=== PATIENT | female | born 1960 | race African-American/Black ===

== ENCOUNTER 2016-05-31 00:38 | Observation (INO) | payer MEDICAID ==
[~2016-05-31] VITALS: Ht 162.6 cm; Wt 93.4 kg
[~2016-05-31 00:38] MED LIST: ASPIRIN325 MG PO; EFFIENT10 MG PO; GLIPIZIDE10 MG PO; GLUCOPHAGE850 MG PO; METOPROLOL TAR100 M1 PO; MOBIC7.5 MG PO; NORVASC5 MG PO; PRAVACHOL40 MG PO; ZESTORETIC 20/21 TAB PO
[2016-05-31 01:35] LABS: HEMATOCRIT 40.9 % (36.0-48.0); HEMOGLOBIN 13.3 g/dL (12-16); MCH 26.9 pg (26.0-34.0); MCHC 32.5 g/dL (31.0-37.0); MCV 82.6 fL (80.0-100.0); PLATELET COUNT 244 10x3/uL (130-400); RBC 4.95 10x6/uL (4.00-5.40); WBC 5.8 10x3/uL (4.8-10.8)
[2016-05-31 01:49] LABS: ALBUMIN 3.5 g/dL (3.4-5.0); ALKALINE PHOSPHATASE 64 U/L (46-116); ALT (SGPT) 34 U/L (10-68); CALC OSMOLALITY 281 mosm/kg (275-300); CALCIUM 9.5 mg/dL (8.5-10.1); CARBON DIOXIDE 27.9 mmol/L (21.0-32.0); CHLORIDE - SERUM 102 mmol/L (98-107); CREATININE - SERUM 0.9 mg/dL (0.6-1.3); PROTEIN - SERUM 7.1 g/dL (6.4-8.2); SODIUM 136 mmol/L (136-145); UREA NITROGEN 9 mg/dL (7-18); eGFR NON AFRICAN AMERICAN 69 mL/min (90-120)
[2016-05-31 02:00] LABS: GLUCOSE 288 mg/dL (74-106)
[2016-05-31 02:06] LABS: CHOLESTEROL, TOTAL 264 mg/dL (0-200); CKMB 0.8 U/L (0.0-3.6); CREATINE KINASE 109 UL (21-215); HDL CHOLESTEROL 44 mg/dL (32-96); LDL CHOLESTEROL 150 mg/dL (0-100); LDL-HDL RATIO 3.4 ratio (1.5-3.5); PRO BNP 35 pg/mL (0-125); TRIGLYCERIDE 353 mg/dL (30-200); TROPONIN-I < 0.017 ng/mL (0.000-0.060)
[2016-05-31 02:52] LABS: BASOPHILS 1 % (0.0-2.0); EOSINOPHILS 2 % (0-7); LYMPHOCYTES 52 % (15-50); MONOCYTES 9 % (2-11); NEUTROPHILS 36 % (40-80); PLATELET ESTIMATE NORMAL
[2016-05-31] MEDS ORDERED: NEURONTIN 300300 MG PO (04:19)
[2016-05-31] MEDS ORDERED: XANAX1 MG PO (04:20)
[2016-05-31 04:32] VITALS: BP 136/86; Ht 162.6 cm; Wt 93.4 kg
[2016-05-31 04:39] VITALS: BP 136/86
--- NOTE | 2016-05-31 06:00 | NUR ---
REC'D TO FLOOR VIA W/C @ 7967. INITIAL ASSESSMENT, ETC INITIATED. ORIENTED TO ROOM, C/L, AND NPO STATUS. WILL INITIATE PLAN OF CARE
[2016-05-31 08:18] VITALS: BP 130/92
--- NOTE | 2016-05-31 10:02 | NUR ---
IV PATENT. TELEMETRY SR. CALL LIGHT IN REACH. WILL CONT. PLAN OF CARE.
[2016-05-31 12:42] VITALS: BP 122/70
[2016-05-31 14:28] LABS: CKMB 0.5 U/L (0.0-3.6); CREATINE KINASE 68 UL (21-215); TROPONIN-I < 0.017 ng/mL (0.000-0.060)
[2016-05-31 16:00] VITALS: BP 114/70
--- NOTE | 2016-05-31 19:00 | NUR ---
INITIAL ROUNDS MADE. PT SITTING UP IN BED WATCHING TV. NO NEEDS OR C/O VOICED AT THIS TIME. CALL LIGHT IN REACH. WILL CONT TO MONITOR.
[2016-05-31 20:00] VITALS: BP 129/80
[2016-05-31 20:19] LABS: CKMB 0.2 U/L (0.0-3.6); CREATINE KINASE 92 UL (21-215)
[2016-05-31 20:21] LABS: TROPONIN-I < 0.017 ng/mL (0.000-0.060)
[2016-06-01] VITALS: BP 115/66
[2016-06-01 03:08] LABS: CKMB 0.3 U/L (0.0-3.6); CREATINE KINASE 29 UL (21-215)
--- NOTE | 2016-06-01 03:14 | NUR ---
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 CALL LIGHT IN REACH. WILL CONT TO MONITOR.
[2016-06-01 03:18] LABS: TROPONIN-I < 0.017 ng/mL (0.000-0.060)
[2016-06-01 04:00] VITALS: BP 120/73
--- NOTE | 2016-06-01 07:30 | NUR ---
RESTING QUIETLY RESP UNLABORED DENIES ANY NEEDS OR DISCOMFORT AT THIS TIME
[2016-06-01 08:43] VITALS: BP 113/71
--- NOTE | 2016-06-01 12:40 | CN ---
PATIENT NAME:CYNTHIA ESCOBEDO MEDICAL RECORD: [id number] : 64 LOCATION:. D.2118 ADMIT DATE: 05/31/16 ACCOUNT: [id number] CONSULTING PHYSICIAN: MANJIT AYALA MD REFERRING PHYSICIAN: ERICH ERIC MD DATE OF CONSULTATION: 05/31/2016 HISTORY OF PRESENT ILLNESS: A 55-year-old lady with known history of coronary artery disease, status post stenting. She has a history of hypertension as well as dyslipidemia. ____ worse with inspiration. No fevers or chills. Cardiac enzymes negative. ECG without acute change. We are asked to see her concerning her cardiovascular status. PAST MEDICAL HISTORY: 1. History of hypertension. 2. Diabetes mellitus. 3. Coronary artery disease as described above. 4. Peripheral neuropathy. MEDICATIONS: Includes lisinopril ____ q. day, metoprolol 100 b.i.d., pravastatin 40 q. day, amlodipine 10 q. day, Xanax 0.5. q. day, Neurontin 300 q. day, Glucotrol 10 q. day, metformin 850 q. day. ALLERGIES: None known. SOCIAL HISTORY: Lives here in [place]. She is able to take care of her ADLs. No illicit drug use. REVIEW OF SYSTEMS: The patient reports easy bruising but reports no swollen glands. The patient reports no fever, no night sweats, no significant weight gain, no significant weight loss. No significant exercise tolerance. The patient reports no dry eyes, no irritation, no vision change. Patient reports no difficulty hearing and no ear pain. Patient reports no frequent nose bleeds or nose and sinus problems. Patient reports on arm pain on exertion. No shortness of breath while lying down. No history of heart murmur. Patient reports no cough, no wheezing or coughing up blood. Patient reports no abdominal pain, no vomiting. Normal appetite. No diarrhea and not vomiting blood. No nausea and no constipation. Patient reports no incontinence. No difficulty urinating. No hematuria. No increased frequency. Patient reports no muscle aches. No weakness, no arthralgias, no back pain. No swelling of the extremities. Patient reports no abnormal mole, no jaundice, no rashes. Reports no loss of consciousness. No weakness and no numbness. No seizures, dizziness, or headaches. The patient reports no depression, no sleep disturbance, feeling safe in a relationship and no alcohol abuse. Patient reports on fatigue. Reports no runny nose or sinus pressure. No itching, no hives, and no frequent sneezing. PHYSICAL EXAMINATION: GENERAL: Pleasant female in no acute distress. VITAL SIGNS: Blood pressure 130/92, pulse 77 and regular. HEENT: Normocephalic, atraumatic. NECK: No JVD or bruit. HEART: Regular. LUNGS: Rosario clear. ABDOMEN: Soft, nontender. CONSULT REPORT [id number] CYNTHIA ESCOBEDO EXTREMITIES: Pulse 2+ with no edema. NEUROLOGIC: Grossly intact. IMPRESSION: Chest pain, somewhat atypical given protracted pain, negative enzymes, ECG doubt acute ischemic syndrome. There is a definite pleuritic component. We will give 1 dose Solu-Medrol. No contraindication at discharge from a cardiovascular standpoint. TRANSINT:[id number] Voice Confirmation ID: [id number] DOCUMENT ID: [id number] MANJIT AYALA MD at 1240 CC: [id number] DICTATION DATE: 05/31/16 1108 ISOTOPE TECHNICIAN: 05/31/16 1428 ADM IN [facility] [address] [id number]
[2016-06-01 13:14] VITALS: BP 107/72
--- NOTE | 2016-06-01 17:45 | NUR ---
REVIEWED DISCHARGE INSTRUCTIONS PT STATES UNDERSTANDING COPY GIVEN SALINE LOCK DCD WITH CATHETER TIP INTACT SITE FREE OF REDNESS OR EDEMA NOTED PT DISCHARGED HOME IN STABLE CONDITION WITH ALL PERSONAL BELONGINGS VIA W/C
== END 2016-06-01 17:45 | disposition home or self-care (01) ==
LOC: D.ER 00:38 → OBSVTIME 02:51 → D.M2 02:51
PROVIDERS: Emergency Medicine; ADMIT Emergency Medicine
DX: R07.89 Other chest pain (principal); I25.10 Atherosclerotic heart disease of native coronary artery without angina pectoris; I10 Essential (primary) hypertension; E78.5 Hyperlipidemia, unspecified; E11.40 Type 2 diabetes mellitus with diabetic neuropathy, unspecified

== ENCOUNTER 2016-12-24 18:04 | Emergency (ER) | payer MEDICAID ==
[~2016-12-24 18:04] MED LIST changes: +NEURONTIN 300300 MG PO; +XANAX1 MG PO
== END 2016-12-24 20:10 | disposition home or self-care (01) ==
LOC: D.ER 18:04
DX: M25.512 Pain in left shoulder (principal); I10 Essential (primary) hypertension; E11.9 Type 2 diabetes mellitus without complications

== ENCOUNTER 2017-11-15 19:54 | Emergency (ER) | payer MEDICAID ==
[~2017-11-15] VITALS: Ht 162.6 cm; Wt 90.9 kg
[2017-11-15 19:59] VITALS: Ht 162.6 cm; Wt 90.9 kg
[2017-11-15 20:56] LABS: BASOPHILS 0.2 % (0-2); EOSINOPHILS 0.9 % (0-7); HEMATOCRIT 37.6 % (36.0-48.0); HEMOGLOBIN 12.8 g/dL (12-16); IMMATURE GRANULOCYTES 0.2 % (0-5); LYMPHOCYTES 22.3 % (15-50); MCH 27.3 pg (26.0-34.0); MCV 80.2 fL (80.0-100.0); MEAN PLATELET VOLUME 10.8 fL (7.4-10.4); MONOCYTES 7.1 % (2-11); NEUTROPHILS 69.3 % (40-80); PLATELET COUNT 292 10x3/uL (130-400); RBC 4.69 10x6/uL (4.00-5.40); RDW 12.9 % (11.5-14.5); WBC 5.7 10x3/uL (4.8-10.8)
[2017-11-15 21:31] LABS: APPEARANCE CLEAR (CLEAR); BILIRUBIN NEGATIVE (NEGATIVE); COLOR YELLOW (YELLOW); GLUCOSE 1000 mg/dL (NEGATIVE); KETONE NEGATIVE (NEGATIVE); NITRITE NEGATIVE (NEGATIVE); PROTEIN NEGATIVE (NEGATIVE); UROBILINOGEN NORMAL (NORMAL)
[2017-11-15 21:33] LABS: BACTERIA MANY /hpf (NONE SEEN); EPITHELIAL CELLS 0-5 /hpf (0-5); RED CELLS - URINE OCC /hpf (0-5)
[2017-11-15 21:45] LABS: ALBUMIN 3.2 g/dL (3.4-5.0); ALKALINE PHOSPHATASE 67 U/L (46-116); ALT (SGPT) 23 U/L (10-68); BILIRUBIN - TOTAL 0.31 mg/dL (0.2-1.3); CALC OSMOLALITY 279 mosm/kg (275-300); CALCIUM 8.6 mg/dL (8.5-10.1); CARBON DIOXIDE 25.4 mmol/L (21.0-32.0); CHLORIDE - SERUM 99 mmol/L (98-107); CREATININE - SERUM 0.7 mg/dL (0.6-1.3); POTASSIUM - SERUM 3.4 mmol/L (3.5-5.1); PROTEIN - SERUM 6.8 g/dL (6.4-8.2); SODIUM 134 mmol/L (136-145); UREA NITROGEN 5 mg/dL (7-18); eGFR NON AFRICAN AMERICAN > 90 mL/min (90-120)
[2017-11-15 21:46] LABS: GLUCOSE 375 mg/dL (74-106); MAGNESIUM - SERUM 1.5 mg/dL (1.8-2.4)
[2017-11-15] MEDS ORDERED: ZOFRAN4 MG PO (22:05)
[2017-11-15] MEDS ORDERED: MACROBID100 MG PO (22:05)
[2017-11-15 22:25] VITALS: BP 147/92
== END 2017-11-15 22:26 | disposition home or self-care (01) ==
LOC: D.ER 19:54
PROVIDERS: Family Medicine
DX: N39.0 Urinary tract infection, site not specified (principal); E11.65 Type 2 diabetes mellitus with hyperglycemia; E87.6 Hypokalemia; E83.42 Hypomagnesemia; I10 Essential (primary) hypertension; R11.0 Nausea; R51 Headache

== ENCOUNTER → 2018-02-19 | Emergency (ER) | payer MEDICAID ==
[~2018-02-19] VITALS: Ht 162.6 cm; Wt 86.4 kg
[~2018-02-19] MED LIST changes: +CORTISPORIN OTI10 M1 EACH EAR; +KEFLEX500 MG PO; +MACROBID100 MG PO; +NORCO 7.5/325 T1 TA1 PO; +ZOFRAN4 MG PO
[2018-02-19 22:20] VITALS: Ht 162.6 cm; Wt 86.4 kg
[2018-02-19 23:23] VITALS: BP 130/88
== END | disposition home or self-care (01) ==
LOC: D.ER 22:15
DX: H66.92 Otitis media, unspecified, left ear (principal); H60.502 Unspecified acute noninfective otitis externa, left ear; I10 Essential (primary) hypertension

== ENCOUNTER 2018-08-09 11:42 | Emergency (ER) | payer MEDICAID ==
[~2018-08-09] VITALS: Ht 162.6 cm; Wt 88.6 kg
[2018-08-09 11:58] VITALS: Ht 162.6 cm; Wt 88.6 kg
[2018-08-09] MEDS ORDERED: MEDROL DOSE PACK4 MG PO (14:13)
[2018-08-09] MEDS ORDERED: VOLTAREN75 MG PO (14:13)
[2018-08-09 14:29] VITALS: BP 131/74
== END 2018-08-09 14:29 | disposition home or self-care (01) ==
LOC: D.ER 11:42
DX: M25.572 Pain in left ankle and joints of left foot (principal); M79.672 Pain in left foot; G89.29 Other chronic pain; E11.9 Type 2 diabetes mellitus without complications; I10 Essential (primary) hypertension

== ENCOUNTER → 2018-08-17 07:48 | Outpatient (CLI) | payer MEDICAID ==
[2018-08-09 11:58] VITALS: BMI 33.5
--- NOTE | ~2018-08-17 | ST ---
PATIENT:CYNTHIA ESCOBEDO MEDICAL RECORD: [id number] SEX: F LOCATION:[facility] ORDER #: ADMISSION DATE: 08/17/18 AGE OF PATIENT: 57 REFERRING PHYSICIAN: INTERPRETING PHYSICIAN: TRINIDAD CHAVARRIA MD DATE OF SERVICE: 08/17/2018 PROCEDURE: Nuclear stress test. INDICATION: Angina, coronary artery disease, shortness of breath, hypertension, hyperlipidemia. DESCRIPTION: She was exercised on standard Lexiscan protocol with 33 mCi of sestamibi injected at peak stress, 11 mCi used previously for rest images. FINDINGS: Gated SPECT reveals a preserved ejection fraction at 56% with good wall motioning and thickening and brightening throughout all segments. SPECT imaging: Cardiolite was used as a myocardial perfusion agent. There is a large area of reversibility anteriorly and apically. This includes the basal, mid, apical anterior segments as well as the apex itself. The degree of reversibility is mild to moderate. The amount of myocardium involved is moderate to large. OVERALL IMPRESSION: 1. This is a high risk abnormal nuclear stress test with reversibility throughout the anteroapical segment. 2. Gated SPECT reveals a preserved ejection fraction of 56%. In this patient with ongoing symptomatology, the current scan does suggest the presence of hemodynamically significant coronary artery disease. We will proceed with coronary angiography as followup study. TRANSINT:[id number] Voice Confirmation ID: [id number] DOCUMENT ID: [id number] TRINIDAD CHAVARRIA MD CC: [id number] DICTATION DATE: 08/17/181817 SALES SERVICE SUPERVISOR: 08/18/18 0356 DEP CLI 08/17/[id number] [place] [address]
[~2018-08-17 07:48] MED LIST changes: +MEDROL DOSE PACK4 MG PO; +VOLTAREN75 MG PO
== END | disposition home or self-care (01) ==
LOC: D.HCCARDIO 07:48
PROVIDERS: ATTEND Internal Medicine Interventional Cardiology
DX: I25.10 Atherosclerotic heart disease of native coronary artery without angina pectoris (principal)

== ENCOUNTER 2018-08-30 00:13 | Observation (INO) | payer MEDICAID ==
[~2018-08-30] VITALS: Ht 162.6 cm; Wt 87.8 kg
--- NOTE | ~2018-08-30 | HEMODYNAMI ---
PATIENT:CYNTHIA ESCOBEDO MEDICAL RECORD: [id number] : 64 [id number] AD[facility] DATE: 08/30/18 Generatedon:08/30/201813:10 Patient name: CYNTHIA ESCOBEDO Patient #: [id number] SSN: D OB: 1960 Date of study: 08/30/2018 Page: Of Hemodynamic Procedure Report Patient Data Patient Demographics Procedure consent was obtained First Name: CYNTHIA Gender: Female Last Name: FANNY : 1960 [facility] Initial: CATHLEEN Age: 57 year(s) Patient #: [id number] Race: Black Additional ID: [id number] Contact details [address]: [address] [place] [address] State: [place] City: [place] Zip code: [address] Past Medical History Allergies: No known allergies Admission Admission Data Admission Date: 08/30/2018 Admission Time: 2:46 Admit Source: Emergency department Room #: D.2119 Lab Results Lab Result Date: 08/30/2018 Lab Result Time: 6:39 Biochemistry Name Units Result Min Max BUN mg/dl 13 --(--*-)-- 7 18 Creatinine mg/dl 0.8 --(-*--)-- 0.6 1.3 CBC Name Units Result Min Max Hematocrit % 38.9 *-(----)-- 42 54 Hemoglobin g/dl 13.2 -*(----)-- 13.5 17.5 Procedure Procedure Types Cath Procedure Diagnostic Procedure LHC [facility] w/Coronaries FFR/IVUS FFR Initial FFR Additional Intra-Coronary IVUS Initial Intra-Coronary IVUS Additional Sedation Charges Moderate Sedation up to 15 minutes PCI Procedure Coronary Stent Coronary Stent Initial x2 Procedure Description Procedure Date Procedure Date: 08/30/2018 Procedure Start Time: 12:40 Procedure End Time: 13:10 Procedure Staff Name Function Geo Frye MD Performing Physician Oscar Pineda RT Monitor Anaya Rosairo RT Scrub Polina Short RN Nurse David Almanzar RN Spot Man Procedure Data Cath Procedure Fluoroscopy Diagnostic fluoroscopy Total fluoroscopy Time: 7.4 time: 7.4 min min Diagnostic fluoroscopy Total fluoroscopy dose: dose: 422.43 mGy 422.43 mGy Contrast Material Contrast Material Type Amount (ml) Isovue 370 110 Entry Location Entry Primary Successful Side Size Upsize Upsize Entry Closure Succes sful Closure Location (Fr) 1 (Fr) 2 (Fr) Remarks Device Remarks Femoral Right 5 Fr 6 Fr Exoseal artery Short Estimated blood loss: 10 ml Diagnostic catheters Device Type Used For End Catheter Placement MULTIPACK Pigtail 5 Fr Procedure catheter MULTIPACK JL 4.0 5Fr Procedure catheter MULTIPACK 3DRC 5Fr Procedure catheter Procedure Complications No complications Procedure Medications Medication Administration Route Dosage Oxygen etCO2 Nasal cannula 2 l/min Lidocaine 2% added to field 20 Heparin Flush Bag added to field 2 bags (1000units/500ml NS) 0.9% NaCl I.V. 100 ml/hr Versed I.V. 2 mg Fentanyl I.V. 100 mcg Fentanyl I.V. 50 mcg Heparin Bolus I.V. 4000 units Integrilin (Bolus I.V. 7.9 ml 2mg/ml) Fentanyl I.V. 50 mcg Plavix P.O. 600 mg Hemodynamics Rest Heart Rate: 79 (bpm) Snapshots Pre Cath Intra NCS Post Cath Vital Signs Time Heart Resp SPO2 etCO2 NIBP (mmHg) Rhythm Pain Status Sedation Rate (ipm) (%) (mmHg) Level (bpm) 12:38:50 74 17 100 1.5 152/99(125) NSR 6 (11) , 10(A) Intense 12:43:02 75 42 96 0.7 112/68(82) NSR 2 (11) , 10(A) Uncomfortable 12:47:18 75 17 98 1.5 107/67(80) NSR (Missing) 9(A) 12:51:30 74 12 100 0 117/65(79) NSR (Missing) 9(A) 12:55:36 80 18 100 3 121/76(90) NSR (Missing) 9(A) 12:59:44 78 15 100 3.7 120/71(90) NSR (Missing) 9(A) 13:03:45 80 14 99 3.7 115/78(90) NSR (Missing) 9(A) 13:07:39 85 12 100 3 125/87(109) NSR (Missing) 10(A) Medications Time Medication Route Dose Verified Delivered Reason Notes Effectiveness by by 12:35:15 Oxygen etCO2 2 Geo Buffie used for Nasal l/min Melva Short RN procedure cannula 12:35:21 Lidocaine 2% added 20ml Geonagi Guardado for local to vial Melva Frye MD anesthetic field 12:35:28 Heparin Flush added 2 Geo Geo used for Bag to bags Melva Frye MD procedure (1000units/500ml field NS) 12:35:39 0.9% NaCl I.V. 100 Geo Duarteie Per physician ml/hr Melva Short RN 12:40:46 Versed I.V. 2 mg Geo Duarteie for sedation Melva Short RN 12:40:52 Fentanyl I.V. 100 Goe Buffie for sedation mcg Melva Short RN 12:47:07 Fentanyl I.V. 50 Geo Fish for sedation mcg Melva Short RN 12:51:15 Fentanyl I.V. 50 Geo Fish for sedation mcg Melva Short RN 12:56:43 Heparin Bolus I.V. 4000 Geo Fish for Verif ied units Melva Short RN anticoagulation with dr frye 12:58:53 Integrilin I.V. 7.9 Geonagi Duarteie Per physician waste d (Bolus 2mg/ml) ml Melva Short RN 2.1 ml of vial 13:08:34 Plavix P.O. 600 Geo Fish for mg Melva Short RN antiplatelet therapy Procedure Log Time Note 12:20:02 Informed consent obtained and on chart 12:20:07 Admit Source: Emergency department 12:20:23 Diagnostic Cath status Urgent 12:20:25 David Almanzar RN sent for patient. Start room use. 12:20:26 Time tracking: Regular hours (M-F 7:00 - 5:00) 12:20:29 Plan of Care:Hemodynamics will remain stable., Cardiac rhythm will remain stable., Comfort level will be maintained., Respiratory function will remain adequate., Patient/ family verbilizes understanding of procedure., Procedure tolerated without complication., Recovers from procedure without complications.. 12:21:59 Patient allergic to No known allergies 12:23:04 Lab Result : BUN 13 mg/dl 12:23:04 Lab Result : Creatinine 0.8 mg/dl 12:23:04 Lab Result : Hemoglobin 13.2 g/dl 12:23:04 Lab Result : Hematocrit 38.9 % 12:23:07 Lab results completed and on chart. 12:26:14 Patient received from Med II to CCL 3 Alert and oriented. Tansferred to table in Supine position. 12:26:15 Warm blankets applied, and yadi hugger turned on for patient comfort. 12:26:16 Correct patient and procedure confirmed by team. 12:26:16 ECG and BP/O2 sat monitors applied to patient. 12:26:17 Pre-procedure instructions explained to patient. 12:26:19 Pre-op teaching completed and patient verbalized understanding. 12:26:20 Family in patients room. 12:26:21 Patient NPO since Midnight. 12:35:15 Oxygen 2 l/min etCO2 Nasal cannula was administered by Polina Short RN; used for procedure; 12:35:21 Lidocaine 2% 20ml vial added to field was administered by Geo Frye MD; for local anesthetic; 12:35:28 Heparin Flush Bag (1000units/500ml NS) 2 bags added to field was administered by Geo Frye MD; used for procedure; 12:35:39 0.9% NaCl 100 ml/hr I.V. was administered by Polina Short RN; Per physician; 12:37:52 Vital chart was started 12:37:53 Baseline sample Acquired. 12:38:00 Rhythm: sinus rhythm 12:38:02 Full Disclosure recording started 12:38:15 H&P Date Dictated: 08/30/2018 Within 30 days and on chart.. 12:38:18 Is the patient allergic to Iodine/contrast media? No. 12:38:25 Is patient on blood thinner?No 12:38:28 Patient diabetic? Yes. 12:38:28 If diabetic: On Metformin? Yes 12:38:29 If on Metformin: Last Dose? 08/30/2018 12:38:40 Previous problem with sedation/anesthesia? No ? 12:38:42 Snore? Yes 12:38:43 Sleep apnea? No 12:38:44 Deviated septum? No 12:38:44 Opens mouth fully? Yes 12:38:45 Sticks out tongue? Yes 12:38:46 Airway obstruction? No ? 12:38:48 Dentures? No ? 12:38:50 Pre procedure: right dorsailis pedis pulse 2+ Normal; easily identifiable; not easily obliterated 12:38:54 Patient pain scale 6/10 chest . 12:38:59 IV patent on arrival in left antecubital with 0.9% NaCl at [facility]. 12:39:03 Right groin area was prepped with chlora-prep and draped in sterile fashion 12:39:03 Alarms reviewed by R. N. 12:39:07 Sharps counted by scrub and verified by R.N. 12:39:09 Use device set Femoral Dx 12:39:10 ACIST Syringe (51790) opened to sterile field. 12:39:10 Bag Decanter (2002S) opened to sterile field. 12:39:11 Medline Cath Pack ([id number]) opened to sterile field. 12:39:12 ACIST Hand Control (49470) opened to sterile field. 12:39:13 ACIST Manifold (61884) opened to sterile field. 12:39:13 DIAGNOSTIC Multipack 5Fr catheter set ([id number]) opened to sterile field. 12:39:14 Tegaderm 4 x 4 (1626W) opened to sterile field. 12:39:17 SHEATH 5FR [place] (FMC168) opened to sterile field. 12:39:31 DIAGNOSTIC WIRE .035 260cm J wire (103174) opened to sterile field. 12:39:37 Physician arrived 12:39:37 --------ALL STOP TIME OUT------ 12:39:38 Final Timeout: patient, procedure, and site verified with staff and physician. All members of the team are in agreement. 12:39:39 Right groin site verified by team. 12:39:41 Fire Safety Assessment: A--An alcohol-based skin anteseptic being used preoperatively., C--Open oxygen or nitrous oxide is being used., D--An ESU, laser, or fiber-optic light is being used. 12:39:45 Physical assessment completed. ASA score P 2 - A patient with mild systemic disease as per Geo Frye MD. 12:39:49 Maximum allowable contrast does (3.7 X eGFR X 0.75)249 ml. 12:39:57 1) 90+ Normal kidney functon but urine findings or structural abnormalities or genetic trait point to kidney disease. 12:40:01 Sedation plan: IV Moderate Sedation Medication:Versed, Fentanyl 12:40:05 Procedure started. 12:40:07 Local anesthetic to right femoral artery with Lidocaine 2% by Geo Frye MD.INITIAL ACCESS ONLY 12:40:46 Versed 2 mg I.V. was administered by Polina Short RN; for sedation; 12:40:52 Fentanyl 100 mcg I.V. was administered by Polina Short RN; for sedation; 12:42:07 A 5 Fr sheath was inserted into the Right Femoral artery 12:42:12 A MULTIPACK Pigtail 5 Fr catheter was advanced over the wire and used for Procedure. 12:42:15 Zero performed for pressure channel P1 12:42:18 Zero performed for pressure channel P1 12:42:33 LV gram done using XAVIER 12:42:35 Injector settings: Ml/sec: 10, Volume: 20, 12:42:39 EF : 60 % 12:42:40 Catheter exchanged over wire. 12:42:42 Zero performed for pressure channel P1 12:43:12 A MULTIPACK JL 4.0 5Fr catheter was advanced over the wire and used for Procedure. 12:43:23 LCA angiography performed. 12:45:04 Catheter exchanged over wire. 12:45:26 A MULTIPACK 3DRC 5Fr catheter was advanced over the wire and used for Procedure. 12:45:28 RCA angiography performed. 12:45:30 Catheter removed. 12:45:42 Vanderbilt Verrata Plus pressure wire (03803S) opened to sterile field. 12:45:43 SHEATH 6FR [place] (UKE653) opened to sterile field. 12:45:43 INFLATOR Merit BasixCompak (DH6682) opened to sterile field. 12:46:45 GUIDE 6FR 3DRC SH catheter ([id number]) opened to sterile field. 12:46:53 GUIDE 6FR XBLAD 3.5 catheter ([id number]) opened to sterile field. 12:47:01 Sheath upsized to a 6 Fr Short. 12:47:07 Fentanyl 50 mcg I.V. was administered by Polina Short RN; for sedation; 12:47:10 6 Fr 3DRC guide catheter was inserted over the wire 12:47:18 FFR/IFR wire advanced. 12:47:53 Wire advanced across lesion. 12:48:31 mRCA lesion measured at 1.01 with IFR 12:49:16 Wire removed. 12:49:19 Guide Catheter removed. 12:49:46 6 Fr xblad 3.5 guide catheter was inserted over the wire 12:50:19 FFR/IFR wire advanced. 12:51:15 Fentanyl 50 mcg I.V. was administered by Polina Short RN; for sedation; 12:51:16 Wire advanced across lesion. 12:52:19 Wire removed. 12:52:24 Vanderbilt [place] IVUS Catheter (70874Y) opened to sterile field. 12:52:51 IVUS catheter advanced over wire. 12:54:04 IVUS pass to LAD lesion performed. 12:56:43 Heparin Bolus 4000 units I.V. was administered by Polina Short RN; for anticoagulation; Verified with dr frye 12:56:50 IVUS catheter removed over wire. 12:58:05 Place stent Inflation Number: 1 A SHRUTHI RX 2.5 x 22 stent ([id number]) was prepped and advanced across the Prox LAD 75. The stent was deployed at 17 CARRIE for 0:10 (min:sec) 0. 12:58:10 Stent catheter was removed intact over wire. 12:58:14 Wire removed. 12:58:53 Integrilin (Bolus 2mg/ml) 7.9 ml I.V. was administered by Polina Short RN; Per physician; wasted 2.1 ml of vial 12:58:55 Guide catheter removed. 12:59:12 6 Fr 3DRC guide catheter was inserted over the wire 12:59:25 CHOICE PT Extra Support 182cm wire ([id number]) opened to sterile field. 12:59:30 chocie pt es wire advanced. 13:00:06 Wire advanced across lesion. 13:00:29 IVUS catheter advanced over wire. 13:00:31 IVUS pass to RCA lesion performed. 13:02:54 IVUS catheter removed over wire. 13:04:49 Place stent Inflation Number: 1 A SHRUTHI RX 2.75 x 38 stent ([id number]) was prepped and advanced across the Prox RCA 80. The stent was deployed at 15 CARRIE for 0:10 (min:sec) 0. 13:05:05 Inflation number: 2 The stent balloon was then re-inflated across the Prox RCA 0 to 17 CARRIE for 0:10 (min:sec) . 13:05:23 Pre PCI Site: [place] pLAD has 75% stenosis. 13:05:28 Post PCI Site: [place] pLAD has 0% stenosis. 13:05:34 Pre PCI Site: [place] pRCA has 80% stenosis. 13:05:40 Post PCI Site: [place] pRCA has 0% stenosis. 13:05:48 Stent catheter was removed intact over wire. 13:05:49 Wire removed. 13:05:50 Guide catheter removed. 13:05:57 EXOSEAL 6Fr (EX600) opened to sterile field. 13:06:10 Sheath removed intact; hemostasis achieved with Exoseal to the Right Femoral artery. 13:06:12 Procedure ended.(Physican Out) 13:07:38 Fluoroscopy time 07.40 minutes. 13:07:44 Fluoroscopy dose: 422.43 mGy 13:07:44 Flurop Dose total: 422.43 13:07:54 Contrast amount:Isovue 370 110ml. 13:07:56 Sharps counted by scrub and verified by R.N. 13:07:57 Insertion/operative site no bleeding no hematoma. 13:08:00 Post-op/insertion site Right Femoral artery dressed using a 4 x 4 and Tegaderm. 13:08:06 Post right femoral artery:stable, soft, clean and dry 13:08:07 Post Procedure Pulses reassessed and unchanged 13:08:10 Post-procedure physical assessment completed. ASA score P 2 - A patient with mild systemic disease as per Geo Frye MD. 13:08:12 Post procedure rhythm: unchanged. 13:08:16 Estimated blood loss: 10 ml 13:08:18 Post procedure instruction explained to patient.Patient verbalizes understanding. 13:08:19 Patient needs reinforcement of post procedure teaching. 13:08:34 Plavix 600 mg P.O. was administered by Polina Short RN; for antiplatelet therapy; 13:09:02 Procedure type changed to Cath procedure, Diagnostic procedure, LHC, LHC w/Coronaries, FFR/IVUS, FFR Initial, FFR Additional, Intra-Coronary IVUS Initial, Intra-Coronary IVUS Additional, Sedation Charges, Moderate Sedation up to 15 minutes, PCI procedure, Coronary Stent, Coronary Stent Initial x2 13:09:48 Procedure and supply charges have been captured, reviewed, submitted and are correct. 13:09:51 Procedure Complication : No complications 13:09:52 Vital chart was stopped 13:09:53 See physician's report for complete and final results. 13:09:56 Report given to PCU. 13:09:58 Patient transfered to PCU with Stretcher. 13:10:00 Procedure ended. 13:10:00 Full Disclosure recording stopped 13:10:03 End room use (Document Last) Intervention Summary Intervention Notes Time ActionType Lesion and Equipment Used Action# Pressure Duration Attributes 12:58:05 Place stent Prox LAD SHRUTHI RX 2.5 x 1 17 00:10 22 stent ([id number]) 13:04:49 Place stent Prox RCA SHRUTHI RX 2.75 x 1 15 00:10 38 stent ([id number]) 13:05:05 Reinflate Prox RCA SHRUTHI RX 2.75 x 2 17 00:10 stent 38 stent balloon ([id number]) Device Usage Item Name Manufacture Quantity Catalog Number Hospital Part Current Minimal Lot# / Charge Number Stock Stock Serial# Code ACIST Syringe Acist 1 13974 334532 757609 282710 20 (69694) Medical Systems Inc Bag Decanter Microtek 1 2001S 268181 06207 439440 5 (2001S) Medical Inc. Medline Cath Medline 1 [id number] 697177 24547 184980 5 Pack ([id number]) ACIST Hand Acist 1 67231 653985 258660 796670 5 Control Medical (91119) Systems Inc ACIST Manifold Acist 1 21561 768230 079918 000853 5 (80116) Medical Systems Inc DIAGNOSTIC Cardinal 1 [id number] 223857 63352 489189 30 Multipack 5Fr Health catheter set ([id number]) Tegaderm 4 x 4 3M 1 1626W 673305 376338 549169 5 (1626W) SHEATH 5FR Terumo 1 THN280 401043 544171 952210 5 [place] (XHH872) DIAGNOSTIC St [place] 1 726862 168577 523911 858570 30 WIRE .035 260cm J wire (266226) MULTIPACK Cardinal 1 486547 5 Pigtail 5 Fr Health catheter MULTIPACK JL Cardinal 1 188011 5 4.0 5Fr Health catheter MULTIPACK 3DRC Cardinal 1 699605 5 5Fr catheter Health Vanderbilt Vanderbilt 1 00674C 897239 400308152 777458 5 Verrata Plus pressure wire (25404N) SHEATH 6FR Terumo 1 JZB653 199891 481075 827097 40 [place] (UGC338) INFLATOR Merit Merit 1 AG1386 725537 948173 542924 15 BasixCompak Medical (EZ1276) GUIDE 6FR 3DRC Medtronic 1 [id number] 182812 732071 977263 1 SH catheter ([id number]) GUIDE 6FR Cardinal 1 [id number] 808890 280155 333379 10 XBLAD 3.5 Health catheter (98583756) Vanderbilt Vanderbilt 1 48258O 833539 162727 004842 8 [place] IVUS Catheter (27704K) SHRUTHI RX 2.5 x Medtronic 1 [id number] 030720 0900075 772791 5 [id number] 22 stent ([id number]) CHOICE PT [place] 1 [id number] 469639 875185 357609 5 Extra Support Scientific 182cm wire ([id number]) SHRUTHI RX 2.75 x Medtronic 1 [id number] 196501 7105985 090905 5 [id number] 38 stent ([id number]) EXOSEAL 6Fr Cardinal 1 EX600 097019 050356 543999 10 (EX600) Health Signature Audit [place] Stage Time Signature Unsigned Intra-Procedure 08/30/2018 Oscar Pineda 1:10:28 PM RT(R) Signatures Performing Physician : Signature : Geo Frye MD Date : Time : Monitor : Oscar Pineda RT Signature : Date : Time : Nurse : Polina Short RN Signature : Date : Time : [address] [address] [place] [address]
[2018-08-30 00:36] VITALS: BP 132/76
[2018-08-30 00:44] LABS: BASOPHILS 0.1 % (0-2); EOSINOPHILS 1.3 % (0-7); HEMATOCRIT 38.9 % (36.0-48.0); HEMOGLOBIN 13.2 g/dL (12-16); IMMATURE GRANULOCYTES 0.1 % (0-5); LYMPHOCYTES 22.9 % (15-50); MCH 26.8 pg (26.0-34.0); MCHC 33.9 g/dL (31.0-37.0); MCV 78.9 fL (80.0-100.0); MEAN PLATELET VOLUME 9.7 fL (7.4-10.4); MONOCYTES 2.4 % (2-11); NEUTROPHILS 73.2 % (40-80); RBC 4.93 10x6/uL (4.00-5.40); WBC 6.7 10x3/uL (4.8-10.8)
[2018-08-30 00:45] LABS: PLATELET COUNT 227 10x3/uL (130-400)
[2018-08-30 01:02] LABS: APTT 23.9 SECONDS (22.8-39.4); INR 0.93 (0.85-1.17); PROTIME 11.9 SECONDS (11.6-15.0)
[2018-08-30 01:04] LABS: ALBUMIN 3.6 g/dL (3.4-5.0); ALKALINE PHOSPHATASE 58 U/L (46-116); ALT (SGPT) 28 U/L (10-68); BILIRUBIN - TOTAL 0.25 mg/dL (0.2-1.3); CALC OSMOLALITY 288 mosm/kg (275-300); CARBON DIOXIDE 25.9 mmol/L (21.0-32.0); CHLORIDE - SERUM 101 mmol/L (98-107); POTASSIUM - SERUM 3.6 mmol/L (3.5-5.1); SODIUM 139 mmol/L (136-145); UREA NITROGEN 15 mg/dL (7-18); eGFR NON AFRICAN AMERICAN 61 mL/min (90-120)
[2018-08-30 01:05] LABS: GLUCOSE 270 mg/dL (74-106)
[2018-08-30 01:13] LABS: CKMB 0.4 U/L (0.0-3.6); CREATINE KINASE 60 UL (21-215); MAGNESIUM - SERUM 1.5 mg/dL (1.8-2.4); TROPONIN-I < 0.017 ng/mL (0.000-0.060)
[2018-08-30] MEDS ORDERED: LANTUS INSULIN10 ML SC (03:52)
[2018-08-30] MEDS ORDERED: NEURONTIN 300300 MG PO (03:53)
[2018-08-30 04:00] VITALS: BP 127/85
[2018-08-30 04:16] VITALS: BP 127/85; BMI 33.2
[2018-08-30 07:33] LABS: CKMB 0.5 U/L (0.0-3.6); CREATINE KINASE 54 UL (21-215)
[2018-08-30 07:34] LABS: TROPONIN-I < 0.017 ng/mL (0.000-0.060)
[2018-08-30 08:12] LABS: CALC OSMOLALITY 283 mosm/kg (275-300); CALCIUM 8.8 mg/dL (8.5-10.1); CARBON DIOXIDE 26.2 mmol/L (21.0-32.0); CHLORIDE - SERUM 104 mmol/L (98-107); CREATININE - SERUM 0.8 mg/dL (0.6-1.3); GLUCOSE 249 mg/dL (74-106); POTASSIUM - SERUM 3.8 mmol/L (3.5-5.1); SODIUM 138 mmol/L (136-145); UREA NITROGEN 13 mg/dL (7-18); eGFR NON AFRICAN AMERICAN 79 mL/min (90-120)
[2018-08-30 08:20] LABS: BASOPHILS 0.2 % (0-2); EOSINOPHILS 2.7 % (0-7); HEMATOCRIT 36.7 % (36.0-48.0); HEMOGLOBIN 12.4 g/dL (12-16); IMMATURE GRANULOCYTES 0.2 % (0-5); LYMPHOCYTES 21.9 % (15-50); MCH 26.8 pg (26.0-34.0); MCHC 33.8 g/dL (31.0-37.0); MCV 79.4 fL (80.0-100.0); MEAN PLATELET VOLUME 9.9 fL (7.4-10.4); MONOCYTES 5.3 % (2-11); NEUTROPHILS 69.7 % (40-80); PLATELET COUNT 232 10x3/uL (130-400); RBC 4.62 10x6/uL (4.00-5.40); WBC 5.1 10x3/uL (4.8-10.8)
--- NOTE | 2018-08-30 09:00 | NUR ---
CONSENTS SIGNED FOR [facility]. REFUSES SCDS AT THIS TIME. WILL CONT. PLAN OF CARE.
[2018-08-30 12:00] VITALS: BP 124/84
--- NOTE | 2018-08-30 12:00 | NUR ---
leaving for [facility] lab bed bed. will monitor.
--- NOTE | 2018-08-30 13:35 | NUR ---
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 VS WNL. RIGHT GROIN STABLE WITHOUT BLEEDING OR HEMATOMA NOTED. WILL MONITOR.
[2018-08-30 14:07] VITALS: Ht 162.6 cm; Wt 87.8 kg
[2018-08-30] MEDS ORDERED: PLAVIX75 MG PO (15:07)
[2018-08-30 15:45] VITALS: BP 130/75
--- NOTE | 2018-08-30 17:00 | NUR ---
BED REST UP. GROIN STABLE.
--- NOTE | 2018-08-30 17:47 | NUR ---
IV AND TELEMETRY DCD. DC PLANS GIVEN. UNDERSTANDING VOICED. ESCORTED TO CAR BY W/C.
--- NOTE | 2018-08-31 09:23 | MORECARE ---
CASE MANAGEMENT DISCHARGE SUMMARY PATIENT: CYNTHIA ESCOBEDO UNIT: [id number] ADM DATE: 08/30/18 AGE: 57 : 64 SEX: F ROOM/BED: D.0012 AUTHOR: ERVIN GRIFFITH PHYSICIAN: REFERRING PHYSICIAN: WYATT AGUIRRE MD DATE OF SERVICE: 08/31/18 Discharge Plan Patient Name: CYNTHIA ESCOBEDO [facility] [facility] 1960 Planned Disposition: Home Anticipated Discharge Date: 08/30/18 Discharge Date: 08/30/2018 Expected LOS: 1 Initial Reviewer: [email or web address] Initial Review Date: 08/31/2018 Generated: 08/31/18 10:23 am Patient Name: CYNTHIA ESCOBEDO Page 89016 at 0923 All edits/amendments must be made on the electronic document DICTATION DATE: 08/31/18922 RECAPPER: JANIS 08/31/18922 RPT#: [id number] DC DATE:08/30/18 STATUS: DIS IN [facility] [address] [place] [address] END OF REPORT
--- NOTE | 2018-09-02 16:51 | OP ---
PATIENT NAME: CYNTHIA ESCOBEDO MEDICAL RECORD: [id number] :64 LOCATION:D.M2 D.2119 ADMISSION DATE:08/30/18 SURGEON: TRINIDAD CHAVARRIA MD DATE OF OPERATION: 08/30/2018 PROCEDURES: 1. PTCA and stent, LAD. 2. PTCA and stent, RCA. 3. Intravascular ultrasound, LAD. 4. Intravascular ultrasound, RCA. 5. IFR, RCA. 6. IFR, LAD. 7. Left ventriculogram. 8. Selective coronary angiography. INDICATION: Unstable angina and coronary artery disease. PROCEDURE IN DETAIL: After informed consent was obtained with detailed description of risks and benefits as well as alternative therapies, the patient elected to proceed with angiogram and angioplasty. The right femoral area was prepped and draped in normal sterile fashion. The right femoral artery was cannulated via modified Seldinger technique with placement of 6-Lebanese sheath. All catheters were exchanged through this sheath. FINDINGS: Left ventriculogram performed in standard 30-degree XAVIER view reveals good cardiac wall motion. Ejection fraction 55% to 60%. SELECTIVE CORONARY ANGIOGRAPHY: 1. Left main is with no significant angiographic disease. 2. Left anterior descending has 75% stenosis, confirmed by intravascular ultrasound; however, IFR is normal. 3. Left circumflex has mild irregularities, but no flow-limiting stenosis. 4. Right coronary has 80% stenosis, confirmed by intravascular ultrasound; however, IFR is normal. She had an abnormal nuclear stress test with anterior perfusion defect. She was having 6/10 chest pain during the case, even after sedation. We performed PTCA and stent of the LAD due to the anterior perfusion defect and the ongoing chest discomfort. Angiographically, the RCA was worse. After this, she did get relief of her chest discomfort, was still having 3/10 chest discomfort. At that time, we made decision based on her continued symptomatology and continued ongoing chest discomfort to proceed with PTCA and stent of the RCA. She underwent successful PTCA and stent of the RCA with 2.75 x 38 mm Jack stent. Result was 0% residual stenosis. Her chest pain was totally relieved with this. OVERALL IMPRESSION: Successful PTCA and stent of the LAD and RCA for unstable angina and ongoing chest pain, both going from 75% to 80% initial stenoses to 0% residual stenoses with total resolution of symptomatology. TRANSINT:[id number] Voice Confirmation ID: [id number] DOCUMENT ID: [id number] OPERATIVE REPORT [id number] CYNTHIA ESCOBEDO, TRINIDAD BAILEY at 1651 CC: [id number] DICTATION DATE: 08/30/18 1645 DIESEL INSPECTOR: 08/30/181921 DIS IN 08/30/18 [facility] [address] [facility]901
== END 2018-08-30 17:48 | disposition home or self-care (01) ==
LOC: D.ER 00:13 → OBSVTIME 02:46 → D.M2 02:46
PROVIDERS: Family Medicine; Internal Medicine Interventional Cardiology; ADMIT Internal Medicine Nephrology; ATTEND Internal Medicine Nephrology
DX: I25.110 Atherosclerotic heart disease of native coronary artery with unstable angina pectoris (principal); I10 Essential (primary) hypertension; E78.5 Hyperlipidemia, unspecified; E11.9 Type 2 diabetes mellitus without complications

== ENCOUNTER 2019-02-01 15:02 | Observation (INO) | payer MEDICAID ==
[~2019-02-01] VITALS: Ht 162.6 cm; Wt 86.8 kg
--- NOTE | ~2019-02-01 | HEMODYNAMI ---
PATIENT:CYNTHIA ESCOBEDO MEDICAL RECORD: [id number] : 64 LOCATION:[facility] [id number] ADMISSION DATE: 02/01/19 Generatedon:02/02/201910:56 Patient name: CYNTHIA ESCOBEDO Patient #: [id number] SSN: : 1960 Date of study: 02/02/2019 Page: Of Hemodynamic Procedure Report Patient Data Patient Demographics Procedure consent was obtained First Name: CYNTHIA Gender: Female Last Name: FANNY : 1960 Middle Initial: CATHLEEN Age: 58 year(s) Patient #: [id number] Race: Black SSN: [id number] Additional ID: [id number] Contact details [address]: [address] [place] [address] State: [place] City: [place] Zip code: [address] Past Medical History Allergies: No known allergies Admission Admission Data Admission Date: 02/01/2019 Admission Time: 16:12 Arrival Date: 02/01/2019 Arrival Time: 15:02 Admit Source: Emergency Insurance Payor: Medicaid department [facility] #: [id number] Room #: D2116 Height (in.): 64.17 BSA: 1.93 (m2) Height (cm.): 163 BMI: 32.74 (kg/m2) Weight (lbs.): 191.8 Weight (kg.): 87 Lab Results Lab Result Date: 02/02/2019 Lab Result Time: 0:00 Biochemistry Name Units Result Min Max BUN mg/dl 16 --(---*)-- 7 18 Creatinine mg/dl 0.7 --(*---)-- 0.6 1.3 eGFR ml/min 90 --(*---)-- 90 120 AM CBC Name Units Result Min Max Hemoglobin g/dl 12.2 *-(----)-- 13.5 17.5 Procedure Procedure Types Cath Procedure Diagnostic Procedure C LHC w/Coronaries Sedation Charges Moderate Sedation up to 15 minutes Procedure Description Procedure Date Procedure Date: 02/02/2019 Procedure Start Time: 10:43 Procedure End Time: 10:54 Procedure Staff Name Function Ismael Amador MD Performing Physician Radha Perez RT Monitor Susana Ayala RT Scrub Ke Bergman RN Nurse Indication Angina Procedure Data Cath Procedure Fluoroscopy Diagnostic fluoroscopy Total fluoroscopy Time: 1.5 time: 1.5 min min Diagnostic fluoroscopy Total fluoroscopy dose: 538 dose: 538 mGy mGy Contrast Material Contrast Material Type Amount (ml) Isovue 300 49 Entry Location Entry Primary Successful Side Size Upsize Upsize Entry Closure Succes sful Closure Location (Fr) 1 (Fr) 2 (Fr) Remarks Device Remarks Femoral Right 5 Fr Exoseal artery Estimated blood loss: 5 ml Diagnostic catheters Device Type Used For End Catheter Placement MULTIPACK JL 4.0 5Fr Left Coronary catheter Angiography MULTIPACK 3DRC 5Fr Right Coronary catheter Angiography MULTIPACK Pigtail 5 Fr LV Angiography catheter Procedure Complications No complications Procedure Medications Medication Administration Route Dosage 0.9% NaCl I.V. 100 ml/hr Oxygen NRB 2 l/min Heparin Flush Bag added to field 2 bags (1000units/500ml NS) Lidocaine 2% added to field 20 Versed I.V. 1 mg Fentanyl I.V. 50 mcg Hemodynamics Rest BSA: 1.93 (m2) HGB: 12.2 (g/dl) O2 Consumption: Estimated: 179.78 (ml/min) O2 Co nsumption indexed: Estimated:93.15 (ml/min/m) Heart Rate: 63 (bpm) Pressure Samples Time Site Value (mmHg) Purpose Heart Use Rate(bpm) 10:50 LV 106/-2,5 Snapshot 63 Gradients Valve Time Site Site Mean SEP/DFP Peak To Heart Use 1 2 (mmHg) (sec/min) Peak Rate (mmHg) (bpm) Aortic 10:51 LV AO 63 Snapshots Pre Cath Intra NCS Post Cath Vital Signs Time Heart Resp SPO2 etCO2 NIBP Rhythm Pain Sedation Rate (ipm) (%) (mmHg) (mmHg) Status Level (bpm) 10:25:25 64 16 100 37.3 111/79(93) NSR 0 (11) 10(A) , No pain 10:29:30 62 18 100 36.5 106/73(89) NSR 0 (11) 10(A) , No pain 10:33:38 63 15 100 38.8 96/60(76) NSR 0 (11) 10(A) , No pain 10:37:40 61 17 100 35.8 97/67(78) NSR 0 (11) 10(A) , No pain 10:41:41 63 16 100 37.2 97/65(82) NSR 0 (11) 10(A) , No pain 10:45:43 63 13 100 38.8 98/70(81) NSR 0 (11) 9(A) , No pain 10:49:47 62 13 100 39.6 101/66(80) NSR 0 (11) 9(A) , No pain 10:53:51 62 13 99 38.8 98/64(81) NSR 0 (11) 9(A) , No pain Medications Time Medication Route Dose Verified Delivered Reason Notes Effe ctiveness by by 10:23:55 0.9% NaCl I.V. 100 Ke Ke Per ml/hr Madalyn Bergman physician RN RN 10:24:05 Oxygen NRB 2 Ke Ke for low 02 l/min Lorigan Lorigan sats RN RN 10:24:14 Heparin Flush added 2 Ke Ke used for Bag to bags Lorigan Lorigan procedure (1000units/500ml field RN RN NS) 10:24:25 Lidocaine 2% added 20ml Ke Ke for local to vial Lorigan Lorigan anesthetic field RN RN 10:31:59 Versed I.V. 1 mg Ke Ke for Lorigan Lorigan sedation RN RN 10:32:07 Fentanyl I.V. 50 Ke Ke for mcg Lorigan Lorigan sedation RN supervisor special effects Log Time Note 10:10:23 Susana Ayala RT(R) sent for patient. Start room use. 10:13:03 Informed consent obtained and on chart 10:15:43 Admit Source: Emergency department 10:15:57 Arrival Date: 02/01/2019 3:02:00 PM 10:16:13 Insurance Payor : Medicaid 10:16:17 Patient Height : 64.17 inches 10:16:22 Patient Weight : 191.8 lbs 10:16:59 Lab Result : BUN 16 mg/dl 10:16:59 Lab Result : eGFR AM 90 ml/min 10:16:59 Lab Result : Hemoglobin 12.2 g/dl 10:16:59 Lab Result : Creatinine 0.7 mg/dl 10:17:09 Diagnostic Cath Status : Urgent 10:17:29 Indication : Angina 10:19:21 Procedure Status Urgent Heart Cath (IP). 10:19:29 Time tracking: Regular hours (M-F 7:00 - 5:00) 10:19:33 Plan of Care:Hemodynamics will remain stable., Cardiac rhythm will remain stable., Comfort level will be maintained., Respiratory function will remain adequate., Patient/ family verbilizes understanding of procedure., Procedure tolerated without complication., Recovers from procedure without complications.. 10:19:38 Patient received from Med II to CCL 2 Alert and oriented. Tansferred to table in Supine position. 10:19:39 Warm blankets applied, and yadi hugger turned on for patient comfort. 10:19:40 Correct patient and procedure confirmed by team. 10:19:40 ECG and BP/O2 sat monitors applied to patient. 10:23:55 0.9% NaCl 100 ml/hr I.V. was administered by Ke Bergman RN; Per physician; Verbal order read back and verified. 10:24:05 Oxygen 2 l/min NRB was administered by Ke Bergman RN; for low 02 sats; Verbal order read back and verified. 10:24:14 Heparin Flush Bag (1000units/500ml NS) 2 bags added to field was administered by Ke Bergman RN; used for procedure; Verbal order read back and verified. 10:24:22 Baseline sample Acquired. 10:24:22 Vital chart was started 10:24:25 Lidocaine 2% 20ml vial added to field was administered by Ke Bergman RN; for local anesthetic; Verbal order read back and verified. 10:24:25 Rhythm: sinus rhythm 10:24:27 Full Disclosure recording started 10:24:30 H&P Date Dictated: 02/02/2019 New H&P dictated by physician.. 10:24:31 Pre-procedure instructions explained to patient. 10:24:32 Pre-op teaching completed and patient verbalized understanding. 10:24:33 Family in patients room. 10:24:36 Patient NPO since Midnight. 10:24:37 Is the patient allergic to Iodine/contrast media? No. 10:24:38 Was the patient premedicated? Yes 10:24:39 Is patient on blood thinner?Yes 10:24:42 ACC The patient was administered the following blood thiners within the last 24 hours: ACCPlavix 10:24:45 If diabetic: On Metformin? Yes 10:24:47 If on Metformin: Last Dose? 02/02/2019 10:24:50 Previous problem with sedation/anesthesia? No ? 10:24:52 Snore? Yes 10:24:54 Sleep apnea? No 10:24:55 Deviated septum? No 10:24:56 Opens mouth fully? Yes 10:24:59 Sticks out tongue? Yes 10:25:02 Airway obstruction? No ? 10:25:08 Dentures? Yes in tight 10:25:11 Pre procedure: right dorsailis pedis pulse 2+ Normal; easily identifiable; not easily obliterated 10:25:13 Pre procedure: left dorsailis pedis pulse 2+ Normal; easily identifiable; not easily obliterated 10:25:15 Patient pain scale 0/10 ?. 10:25:19 IV patent on arrival in left forearm with 0.9% NaCl at [facility]. 10:25:21 Lab results completed and on chart. 10:25:26 Stress Test: no; N/A ? 10:25:29 Risk of Mortality: 2.7 10:25:32 Risk of blood transfusion: 1.5 10:25:36 Risk of CHAGO: 1.8 10:25:40 Right groin area was prepped with chlora-prep and draped in sterile fashion 10:25:41 Alarms reviewed by R. N. 10:25:41 Sharps counted by scrub and verified by R.N. 10:25:43 Physician arrived 10:25:43 --------ALL STOP TIME OUT------ 10:25:44 Final Timeout: patient, procedure, and site verified with staff and physician. All members of the team are in agreement. 10:25:45 Right groin site verified by team. 10:25:48 Fire Safety Assessment: A--An alcohol-based skin anteseptic being used preoperatively., C--Open oxygen or nitrous oxide is being used., D--An ESU, laser, or fiber-optic light is being used. 10:25:51 Physical assessment completed. ASA score P 2 - A patient with mild systemic disease as per Ismael Amador MD. 10:25:55 1) 90+ Normal kidney functon but urine findings or structural abnormalities or genetic trait point to kidney disease. 10:25:58 Maximum allowable contrast dose (3.7 X eGFR X 0.75)249 ml. 10:26:02 Sedation plan: IV Moderate Sedation Medication:Versed, Fentanyl 10:26:05 Use device set Femoral Dx 10:26:06 ACIST Syringe (87047) opened to sterile field. 10:26:06 Bag Decanter (2002S) opened to sterile field. 10:26:07 Medline Cath Pack ([id number]) opened to sterile field. 10:26:07 ACIST Hand Control (74297) opened to sterile field. 10:26:08 ACIST Manifold (93733) opened to sterile field. 10:26:08 DIAGNOSTIC Multipack 5Fr catheter set (PT6639) opened to sterile field. 10:26:09 Tegaderm 4 x 4 (1626W) opened to sterile field. 10:26:10 SHEATH 5FR [place] (CRZ104) opened to sterile field. 10:26:10 EMERALD Guide Wire (343-730) opened to sterile field. 10:31:59 Versed 1 mg I.V. was administered by Ke Bergman RN; for sedation; Verbal order read back and verified. 10:32:07 Fentanyl 50 mcg I.V. was administered by Ke Bergman RN; for sedation; Verbal order read back and verified. 10:43:06 Procedure started. 10:43:09 Local anesthetic to right femoral artery with Lidocaine 2% by Ismael Amador MD.INITIAL ACCESS ONLY 10:45:32 A 5 Fr sheath was inserted into the Right Femoral artery 10:46:03 A MULTIPACK JL 4.0 5Fr catheter was advanced over the wire and used for Left Coronary Angiography. 10:46:43 LCA angiography performed. 10:46:46 Injector settings: Ml/sec: 3, Volume: 6, 10:47:26 Catheter removed. 10:47:40 A MULTIPACK 3DRC 5Fr catheter was advanced over the wire and used for Right Coronary Angiography. 10:48:44 RCA angiography performed. 10:48:47 Injector settings: Ml/sec: 3, Volume: 6, 10:49:46 Catheter removed. 10:49:53 A MULTIPACK Pigtail 5 Fr catheter was advanced over the wire and used for LV Angiography. 10:50:50 LV hemodynamics recorded. 10:50:51 LV gram done using XAVIER 10:50:53 Injector settings: Ml/sec: 5, Volume: 15, 10:51:05 EF : 55 % 10:51:24 Catheter removed. 10:52:17 EXOSEAL 5Fr (EX500) opened to sterile field. 10:52:18 ACCDominant side:Right 10:52:25 Sheath removed intact; hemostasis achieved with Exoseal to the Right Femoral artery. 10:52:27 Procedure ended.(Physican Out) 10:52:36 Fluoroscopy time 01.50 minutes. 10:52:39 Fluoroscopy dose: 538 mGy 10:52:39 Flurop Dose total: 538 10:52:48 Dose Area Product 70569 mGy/cm. 10:52:51 Contrast amount:Isovue 300 49ml. 10:52:52 Maximum allowable dose exceeded? No. 10:52:53 Sharps counted by scrub and verified by R.N. 10:52:54 Insertion/operative site no bleeding no hematoma. 10:52:57 Post-op/insertion site Right Femoral artery dressed using a 4 x 4 and Tegaderm. 10:53:00 Post procedure rhythm: unchanged. 10:53:02 Estimated blood loss: 5 ml 10:53:41 Post procedure instruction explained to patient.Patient verbalizes understanding. 10:53:41 Patient needs reinforcement of post procedure teaching. 10:53:47 Procedure type changed to Cath procedure, Diagnostic procedure, LHC, [facility] w/Coronaries, Sedation Charges, Moderate Sedation up to 15 minutes 10:53:48 Procedure and supply charges have been captured, reviewed, submitted and are correct. 10:53:51 Procedure Complication : No complications 10:53:53 Vital chart was stopped 10:54:16 [facility] Findings: mild to moderate CAD (<70%) 10:54:17 Operative report dictated upon procedure completion. 10:54:18 See physician's report for complete and final results. 10:54:34 Report given to [facility]. 10:54:37 Patient transfered to [facility] with Stretcher. 10:54:39 Procedure ended. 10:54:39 Full Disclosure recording stopped 10:54:45 End room use (Document Last) 10:55:21 End room use (Document Last) 10:56:27 End room use (Document Last) Device Usage Item Name Manufacture Quantity Catalog Hospital Part Current Minimal L ot# / Number Charge Number Stock Stock Serial# Code ACIST Acist 1 07361 243593 375871 195959 20 Syringe Medical (68087) Systems Inc Bag Microtek 1 2001S 949476 18560 951303 5 Decanter Medical Inc. () Medline Medline 1 [id number] 073697 39654 024181 5 Cath Pack ([id number]) ACIST Hand Acist 1 55141 400183 593253 986071 5 Control Medical (75717) Systems Inc ACIST Acist 1 52920 101118 580299 215723 5 Manifold Medical (45574) Systems Inc DIAGNOSTIC Cardinal 1 [id number] 933157 04820 342844 30 Multipack Health 5Fr catheter set (CO2483) Tegaderm 4 3M 1 1626W 505613 864735 501520 5 x 4 (1626W) SHEATH 5FR Terumo 1 [id number] 024701 777849 299886 5 [place] (UPQ821) [facility] Cardinal 1 502455 582397 722367 836517 5 Guide Wire [facility] (502455) MULTIPACK Cardinal 1 292743 5 JL 4.0 5Fr Health catheter MULTIPACK Cardinal 1 749453 5 3DRC 5Fr Health catheter MULTIPACK Cardinal 1 542231 5 Pigtail 5 Health Fr catheter EXOSEAL 5Fr Cardinal 1 EX500 815268 325773 319078 10 (EX500) Health Signature Audit [place] Stage Time Signature Unsigned Intra-Procedure 02/02/2019 Radha Perez 10:55:21 AM RT(R) Intra-Procedure 02/02/2019 Ke 10:56:27 AM Madalyn GONZALEZ Intra-Procedure 02/02/2019 Ismael Amador MD 10:56:52 AM Signatures Performing Physician : Signature : Ismael Amador MD Date : Time : Monitor : Radha Chris RT Signature : Date : Time : Nurse : Ke Lorigan Signature : RN Date : Time : [address] [place] [address]
[~2019-02-01 15:02] MED LIST changes: +LANTUS INSULIN10 ML SC; +PLAVIX75 MG PO
[2019-02-01 15:32] LABS: BASOPHILS 0.4 % (0-2); EOSINOPHILS 3.4 % (0-7); HEMATOCRIT 43.6 % (36.0-48.0); HEMOGLOBIN 14.8 g/dL (12-16); IMMATURE GRANULOCYTES 0.2 % (0-5); LYMPHOCYTES 40.1 % (15-50); MCH 27.6 pg (26.0-34.0); MCHC 33.9 g/dL (31.0-37.0); MCV 81.2 fL (80.0-100.0); MEAN PLATELET VOLUME 9.5 fL (7.4-10.4); MONOCYTES 6.9 % (2-11); RBC 5.37 10x6/uL (4.00-5.40); RDW 12.8 % (11.5-14.5)
[2019-02-01 15:35] LABS: PLATELET COUNT 282 10x3/uL (130-400)
[2019-02-01 15:52] LABS: CALC OSMOLALITY 279 mosm/kg (275-300); CALCIUM 9.7 mg/dL (8.5-10.1); CHLORIDE - SERUM 96 mmol/L (98-107); CREATININE - SERUM 0.8 mg/dL (0.6-1.3); POTASSIUM - SERUM 4.3 mmol/L (3.5-5.1); SODIUM 131 mmol/L (136-145); UREA NITROGEN 15 mg/dL (7-18); eGFR NON AFRICAN AMERICAN 78 mL/min (90-120)
[2019-02-01 15:53] LABS: GLUCOSE 379 mg/dL (74-106)
[2019-02-01 16:02] LABS: ALBUMIN 3.9 g/dL (3.4-5.0); ALKALINE PHOSPHATASE 69 U/L (46-116); ALT (SGPT) 28 U/L (10-68); BILIRUBIN - TOTAL 0.31 mg/dL (0.2-1.3); CKMB 0.3 U/L (0.0-3.6); CREATINE KINASE 68 UL (21-215); PROTEIN - SERUM 7.9 g/dL (6.4-8.2); TROPONIN-I < 0.017 ng/mL (0.000-0.060)
[2019-02-01 17:03] LABS: CHOL - HDL RATIO 7.4 ratio (2.3-4.1)
--- NOTE | 2019-02-01 18:21 | NUR ---
TRANSFER FROM ER BY W/C. RAJINDERINTED TO ROOM. CALL LIGHT IN REACH. WILL CONT. PLAN OF CARE.
--- NOTE | 2019-02-01 18:24 | MORECARE ---
CASE MANAGEMENT DISCHARGE SUMMARY PATIENT: CYNTHIA ESCOBEDO UNIT: [id number] ADM DATE: 02/01/19 AGE: 58 : 64 SEX: F ROOM/BED: D.4176 AUTHOR: ERVIN GRIFFITH PHYSICIAN: REFERRING PHYSICIAN: WYATT AGUIRRE MD DATE OF SERVICE: 02/01/19 Discharge Plan Patient Name: CYNTHIA ESCOBEDO Facility: [facility]:[place] : 1960 Planned Disposition: Anticipated Discharge Date: Discharge Date: Expected LOS: Initial Reviewer: [email or web address] Initial Review Date: 02/01/2019 Generated: 02/01/19 7:24 pm DCP- Discharge Planning Updated by [email or web address]: Radha Garcias on 02/01/19 4:[address] CM met with patient to discuss initial discharge planning. Patient is in agreement to proceed with assessment with her fianc?, Benjamin Carrera present. Patient is alert/oriented. Stairs/steps: 1. PCP: Dr. Montgomery. [facility]acy[facility]. Patient states she has been able to obtain all her prescribed medication. HHS: No. DME: None. Patient gives permission to speak with family members/care givers. Emergency contact: Benjamin Carrera (firissa?) Benjamin Carrera [phone]. Patient states she is independent with ADL's. CM discussed the availability of HH, Rehab, DME services. Patient denies the need for additional services at this time and feels safe returning to previous environment. Patient denies being hospitalized within the past 30 days. 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 Transportation at time of discharge: Benjamin Carrera [phone]. CM will assist with further DC needs/plans PRN Patient Name: CYNTHIA ESCOBEDO Page 65001 at 1824 All edits/amendments must be made on the electronic document DICTATION DATE: 02/01/191823 MANAGER SALES SUPPORT: JANIS 02/01/191823 RPT#: [id number] DC DATE: STATUS: ADM IN [facility] [address] [place] [address] END OF REPORT
--- NOTE | 2019-02-01 18:32 | MORECARE ---
CASE MANAGEMENT DISCHARGE SUMMARY PATIENT: CYNTHIA ESCOBEDO UNIT: [id number] ADM DATE: 02/01/19 AGE: 58 : 64 SEX: F ROOM/BED: D.7896 AUTHOR: NACHO,DOC PHYSICIAN: REFERRING PHYSICIAN: WYATT AGUIRRE MD DATE OF SERVICE: 02/01/19 Discharge Plan Patient Name: CYNTHIA ESCOBEDO [facility]:[place] : 1960 Planned Disposition: Anticipated Discharge Date: Discharge Date: Expected LOS: Initial Reviewer: [email or web address] Initial Review Date: 02/01/2019 Generated: 02/01/19 7:32 pm DCP- Discharge Planning Updated by [email or web address]: Radha Garcias on 02/01/19 4:[address] CM met with patient to discuss initial discharge planning. Patient is in agreement to proceed with assessment with her Benjamin encinas present. Patient is alert/oriented. Stairs/steps: 1. PCP: Dr. Montgomery. [facility]acy[facility]. Patient states she has been able to obtain all her prescribed medication. HHS: No. DME: None. Patient gives permission to speak with family members/care givers. Emergency contact: Benjamin Carrera (fianc?) Benjamin Carrera [phone]. Patient states she is independent with ADL's. CM discussed the availability of HH, Rehab, DME services. Patient denies the need for additional services at this time and feels safe returning to previous environment. Patient denies being hospitalized within the past 30 days. Denies use of community resources [employer]. Transportation at time of discharge: Benjamin Carrera [phone]. CM will assist with further DC needs/plans PRN DCPIA - Discharge Planning Initial Assessment Updated by [email or web address]: Radha Garcias on 02/01/19 6:28 pm * Is the patient Alert and Oriented? Yes * How many steps to enter\exit or inside your home? * PCP Dr. Montgomery * Pharmacy [facility] * Preadmission Environment Home with Family * ADLs Independent * Equipment None * Other Equipment NA * List name and contact numbers for known caregivers / representatives who currently or will assist patient after discharge: Benjamin Carrera (fianc?) [phone] * Verbal permission to speak to the caregivers and representatives has been obtained from the patient. Yes * Community resources currently utilized None * Please name any agencies selected above. NA * Additional services required to return to the preadmission environment? No * Can the patient safely return to the preadmission environment? Yes * Has this patient been hospitalized within the prior 30 days at any hospital? No Last DP export: 02/01/19 5:24 Patient Name: CYNTHIA ESCOBEDO Page 01920 at 1832 All edits/amendments must be made on the electronic document DICTATION DATE: 02/01/191831 TRAILER ASSEMBLER: JANIS 02/01/191831 RPT#: [id number] [place] DATE: STATUS: ADM IN [facility] [address] [place] [address] END OF REPORT
--- NOTE | 2019-02-01 19:22 | NUR ---
RECEOVED BEDSIDE REPORT. PATIENT IS ALERT AND ORIENTED, RESTING COMFORTABLY IN BED. RESPIRATIONS ARE EVEN AND UNLABORED. NO S/S OF DISTRESS. NO C/OP AIN. CALL LIGHT WITHIN REACH. WILL CPOC.
[2019-02-01 20:00] VITALS: BP 163/101
[2019-02-01 21:35] LABS: CKMB 0.5 U/L (0.0-3.6); CREATINE KINASE 56 UL (21-215)
[2019-02-01 21:44] LABS: TROPONIN-I < 0.017 ng/mL (0.000-0.060)
[2019-02-01 21:52] VITALS: BP 169/101; Ht 162.6 cm; Wt 86.8 kg
--- NOTE | 2019-02-01 23:13 | NUR ---
PAGED AND SPOKE WITH JUAN AMES APN FOR CRITICAL HIGH BLOOD SUGAR. NEW ORDERS GIVEN TO PLACE PATIENT ON INTERMEDIATE INSULIN SCALE.
[2019-02-02] VITALS: BP 103/67
[2019-02-02 04:00] VITALS: BP 104/71
[2019-02-02 05:21] LABS: HEMATOCRIT 37.3 % (36.0-48.0); HEMOGLOBIN 12.2 g/dL (12-16); MCHC 32.7 g/dL (31.0-37.0); MCV 82.5 fL (80.0-100.0); MEAN PLATELET VOLUME 9.5 fL (7.4-10.4); PLATELET COUNT 267 10x3/uL (130-400); RBC 4.52 10x6/uL (4.00-5.40); RDW 12.9 % (11.5-14.5); WBC 5.1 10x3/uL (4.8-10.8)
[2019-02-02 05:31] LABS: INR 1.03 (0.85-1.17)
[2019-02-02 05:52] LABS: CALCIUM 8.5 mg/dL (8.5-10.1); CHLORIDE - SERUM 103 mmol/L (98-107); CKMB 0.5 U/L (0.0-3.6); CREATINE KINASE 48 UL (21-215); CREATININE - SERUM 0.7 mg/dL (0.6-1.3); MAGNESIUM - SERUM 1.9 mg/dL (1.8-2.4); PHOSPHOROUS 4.8 mg/dL (2.5-4.9); POTASSIUM - SERUM 3.7 mmol/L (3.5-5.1); PRO BNP 25 pg/mL (0-125); SODIUM 137 mmol/L (136-145); THYROID STIMULATING HORMONE 1.15 uIU/mL (0.36-3.74); UREA NITROGEN 16 mg/dL (7-18); eGFR NON AFRICAN AMERICAN > 90 mL/min (90-120)
[2019-02-02 05:58] LABS: CALC OSMOLALITY 277 mosm/kg (275-300); CARBON DIOXIDE 30.2 mmol/L (21.0-32.0); GLUCOSE 152 mg/dL (74-106); TROPONIN-I < 0.017 ng/mL (0.000-0.060)
--- NOTE | 2019-02-02 07:10 | NUR ---
REPORT RECEIVED FROM PROCUREMENT AGENT AND PATIENT CARE ASSUMED. PATIENT SITTING UP IN BED AWAKE, ALERT AND ORIENTED X 4. SPOUSE AT BS. PATIENT DENIES ANY NEEDS OR PAIN. PATIENT IS NPO AWAITING HEART CATH. SR UP X 2 BED IN LOW POSITION AND CALL LIGHT IN REACH.
[2019-02-02 09:07] LABS: ANISOCYTOSIS OCC; EOSINOPHILS 3 % (0-7); HYPOCHROMASIA OCC; LYMPHOCYTES 57 % (15-50); MONOCYTES 12 % (2-11); NEUTROPHILS 28 % (40-80); PLATELET ESTIMATE NORMAL
[2019-02-02 09:33] LABS: CKMB 0.4 U/L (0.0-3.6); CREATINE KINASE 43 UL (21-215); TROPONIN-I < 0.017 ng/mL (0.000-0.060)
--- NOTE | 2019-02-02 10:15 | NUR ---
PHONE CALL FROM INSTRUMENT INSPECTOR TEAM TO PREOP PATIENT. PATIENT IS STABLE AND VSS. PATIENT GIVEN PRE OP MEDS PER MAR. WILL CONTINUE TO MONITOR. AT BS. SR UP X 2 BED IN LOW POSITION AND CALL LIGHT IN REACH.
[2019-02-02 10:39] VITALS: BP 111/75
--- NOTE | 2019-02-02 10:45 | NUR ---
PATIENT IS STABLE AND VSS. PATIENT TO ADMINISTRATIVE RESIDENT VIA HOSPITAL BED AND ADMINISTRATIVE RESIDENT TEAM.
--- NOTE | 2019-02-02 11:45 | NUR ---
PATIENT RETURNED FROM PATTERN CHANGER AND REPAIRER VIA HOSPITAL BED AND PATTERN CHANGER AND REPAIRER TEAM. PATIENT AROUSES EASILY TO VOICE. PATIENT LAYING IN BED ON BACK WITH BOTH LEGS STRAIGHT. PATIENT DENIES ANY PAIN OR NEEDS. RT GROIN DRSG SOFT, C/D/I. VSS AND FREQUENT VITALS SET UP. AT BS. WILL CONTINUE TO MONITOR. SR UP X 2 BED IN LOW POSITION AND CALL LIGHT IN REACH.
[2019-02-02 13:19] VITALS: BP 99/64
--- NOTE | 2019-02-02 14:13 | NUR ---
PATIENT RESTING QUIETLY IN BED . RT HEIDIIN ANN-MARIEG C/D/I. PATIENT IS STABLE AND VSS. AT BS. WILL CONTINUE TO MONTITOR. SR UP X 2 BED IN LOW POSITION AND CALL LIGHT IN REACH.
--- NOTE | 2019-02-02 14:36 | NUR ---
DAVID FROM [facility] FOR DISCHARGE.
--- NOTE | 2019-02-02 15:28 | NUR ---
PATIENT IS STABLE AND VSS. PATIENT DENIES ANY NEEDS OR PAIN. ORDERS RECEIVED FOR DC. WRITTEN AND VERBAL ORDERS GIVEN TO PATIENT AND PATIENT VERBALIZED UNDERSTANDING. PATIENT SIGNED DC PAPERS. IV DCD WITHOUT DIFFICULTY WITH ENTIRE CATHETER INTACT. PRESSURE DRESSING APPLIED. TLEMETRY DCD. ASSISTED PATIENT WITH GETTING DRESSED. PATIENT AWAITING RIDE HOME. WILL CONTINUE TO MONITOR.
--- NOTE | 2019-02-02 16:09 | NUR ---
PATIENT IS STABLE AND VSS. PATIENT TO FRONT DOOR VIA WC ACCOMPANIED BY HOSPITAL STAFF AND FAMILY. PATIENT TO PRIVATE VEHICLE DRIVEN BY FAMILY MEMBER. PATIENT IS DCD HOME FOR SELF CARE.
--- NOTE | 2019-02-03 16:47 | MORECARE ---
CASE MANAGEMENT DISCHARGE SUMMARY PATIENT: CYNTHIA ESCOBEDO UNIT: [id number] ADM DATE: 02/01/19 AGE: 58 : 64 SEX: F ROOM/BED: D.7876 AUTHOR: NACHO,DOC PHYSICIAN: REFERRING PHYSICIAN: WYATT AGUIRRE MD DATE OF SERVICE: 02/03/19 Discharge Plan Patient Name: CYNTHIA ESCOBEDO Facility: [facility]:[place] : 1960 Planned Disposition: Home Anticipated Discharge Date: 02/02/19 Discharge Date: 02/02/2019 Expected LOS: 1 Initial Reviewer: [email or web address] Initial Review Date: 02/01/2019 Generated: 02/03/19 5:47 pm DCP- Discharge Planning Updated by [email or web address]: Radha Garcias on 02/01/19 4:[address] CM met with patient to discuss initial discharge planning. Patient is in agreement to proceed with assessment with her fianc?, Benjamin Carrera present. Patient is alert/oriented. Stairs/steps: 1. PCP: Dr. Montgomery. [facility]acy[facility]. Patient states she has been able to obtain all her prescribed medication. HHS: No. DME: None. Patient gives permission to speak with family members/care givers. Emergency contact: Benjamin Carrera (fianc?) Benjamin Carrera [phone]. Patient states she is independent with ADL's. CM discussed the availability of HH, Rehab, DME services. Patient denies the need for additional services at this time and feels safe returning to previous environment. Patient denies being hospitalized within the past 30 days. Denies use of community resources [employer]. Transportation at time of discharge: Benjamin Carrera [phone]. CM will assist with further DC needs/plans PRN DCPIA - Discharge Planning Initial Assessment Updated by [email or web address]: Radha Garcias on 02/01/19 6:28 pm * Is the patient Alert and Oriented? Yes * How many steps to enter\exit or inside your home? * PCP Dr. Montgomery * Pharmacy [facility] * Preadmission Environment Home with Family * ADLs Independent * Equipment None * Other Equipment NA * List name and contact numbers for known caregivers / representatives who currently or will assist patient after discharge: Benjamin Deandre (fianc?) [phone] * Verbal permission to speak to the caregivers and representatives has been obtained from the patient. Yes * Community resources currently utilized None * Please name any agencies selected above. NA * Additional services required to return to the preadmission environment? No * Can the patient safely return to the preadmission environment? Yes * Has this patient been hospitalized within the prior 30 days at any hospital? No Last DP export: 02/01/19 5:32 Patient Name: CYNTHIA ESCOBEDO Page [id number] at 1647 All edits/amendments must be made on the electronic document DICTATION DATE: 02/03/191645 COMMUNITY DEVELOPMENT AIDE: JANIS 02/03/191645 RPT#: [id number] DC DATE:02/02/19 STATUS: DIS IN [facility] [address] [place] [address] END OF REPORT
== END 2019-02-02 16:10 | disposition home or self-care (01) ==
LOC: D.ER 15:02 → D.M2 16:12 → OBSVTIME 17:16 → D.M2 02-02 16:10
PROVIDERS: Emergency Medicine; Internal Medicine Cardiovascular Disease; ADMIT Internal Medicine Nephrology; ATTEND Internal Medicine Nephrology
DX: I25.110 Atherosclerotic heart disease of native coronary artery with unstable angina pectoris (principal); I10 Essential (primary) hypertension; E78.5 Hyperlipidemia, unspecified; E11.9 Type 2 diabetes mellitus without complications; E87.1 Hypo-osmolality and hyponatremia; F41.9 Anxiety disorder, unspecified

== ENCOUNTER 2019-05-04 16:55 | Emergency (ER) | payer MEDICAID ==
[~2019-05-04] VITALS: Ht 162.6 cm; Wt 89.5 kg
[2019-05-04 17:03] VITALS: Ht 162.6 cm; Wt 89.5 kg
[2019-05-04] MEDS ORDERED: AUGMENTIN 875-11 TAB PO (17:31)
[2019-05-04 18:06] VITALS: BP 136/74
== END 2019-05-04 18:07 | disposition home or self-care (01) ==
LOC: D.ER 16:55
DX: H66.93 Otitis media, unspecified, bilateral (principal); E11.9 Type 2 diabetes mellitus without complications; I25.2 Old myocardial infarction; I10 Essential (primary) hypertension; Z79.4 Long term (current) use of insulin; Z79.84 Long term (current) use of oral hypoglycemic drugs

== ENCOUNTER 2019-07-02 20:58 | Emergency (ER) | payer MEDICAID ==
[~2019-07-02] VITALS: Ht 162.6 cm; Wt 90.9 kg
[~2019-07-02 20:58] MED LIST changes: +AUGMENTIN 875-11 TAB PO
[2019-07-02 21:00] VITALS: Ht 162.6 cm; Wt 90.9 kg
[2019-07-02] MEDS ORDERED: HUMALOG MIX 75/10 ML SC (21:02)
[2019-07-02 21:44] LABS: CALCIUM 9.3 mg/dL (8.5-10.1); CARBON DIOXIDE 22.7 mmol/L (21.0-32.0); CHLORIDE - SERUM 104 mmol/L (98-107); CREATININE - SERUM 0.8 mg/dL (0.6-1.3); POTASSIUM - SERUM 3.5 mmol/L (3.5-5.1); SODIUM 140 mmol/L (136-145); UREA NITROGEN 13 mg/dL (7-18); eGFR NON AFRICAN AMERICAN 78 mL/min (90-120)
[2019-07-02 21:44] LABS: BASOPHILS 0.5 % (0-2); EOSINOPHILS 3.2 % (0-7); HEMATOCRIT 41.4 % (36.0-48.0); HEMOGLOBIN 13.5 g/dL (12-16); IMMATURE GRANULOCYTES 0.2 % (0-5); LYMPHOCYTES 50.2 % (15-50); MCH 26.8 pg (26.0-34.0); MCHC 32.6 g/dL (31.0-37.0); MCV 82.3 fL (80.0-100.0); MEAN PLATELET VOLUME 9.5 fL (7.4-10.4); MONOCYTES 5.3 % (2-11); NEUTROPHILS 40.6 % (40-80); PLATELET COUNT 260 10x3/uL (130-400); RBC 5.03 10x6/uL (4.00-5.40); RDW 13.3 % (11.5-14.5); WBC 4.3 10x3/uL (4.8-10.8)
[2019-07-02 21:58] LABS: ALBUMIN 4.1 g/dL (3.4-5.0); ALKALINE PHOSPHATASE 56 U/L (30-120); ALT (SGPT) 28 U/L (10-68); BILIRUBIN - TOTAL 0.34 mg/dL (0.2-1.3); PRO BNP 16 pg/mL (0-125); PROTEIN - SERUM 7.6 g/dL (6.4-8.2); THYROID STIMULATING HORMONE 0.64 uIU/mL (0.36-3.74)
[2019-07-02 22:01] LABS: CALC OSMOLALITY 285 mosm/kg (275-300); GLUCOSE 217 mg/dL (74-106); TROPONIN-I < 0.017 ng/mL (0.000-0.060)
[2019-07-02 22:40] VITALS: BP 129/84
== END 2019-07-02 22:40 | disposition home or self-care (01) ==
LOC: D.ER 20:58
PROVIDERS: Family Medicine
DX: R55 Syncope and collapse (principal); I25.10 Atherosclerotic heart disease of native coronary artery without angina pectoris; E11.9 Type 2 diabetes mellitus without complications; I10 Essential (primary) hypertension; Z79.4 Long term (current) use of insulin